=== PATIENT | female | born 1995 | race Caucasian/White ===

== ENCOUNTER 2019-09-24 08:00 | Emergency (ER) | payer SELFPAY ==
[2019-09-24 08:45] LABS: APPEARANCE,URINE CLOUDY; BILIRUBIN,URINE NEGATIVE (NEGATIVE); COLOR,URINE YELLOW; GLUCOSE, URINE NEGATIVE (NEGATIVE); KETONES,URINE NEGATIVE (NEGATIVE); PROTEIN,URINE 30 mg/dL (NEGATIVE); URINE SPECIFIC GRAVITY 1.019; UROBILINOGEN,URINE NEGATIVE mg/dL (<2.0)
[2019-09-24] MEDS ORDERED: CEPHALEXIN 500 MG CAPSULE PO ONE (09:22)
[2019-09-24] MEDS ORDERED: PHENAZOPYRIDINE HCL 200 MG TABLET PO ONE (09:22)
--- NOTE | 2019-09-24 09:25 | ER Document Report ---
HPI - HPI Patient complains to provider of: UTI Time Seen by Provider: 09/24/19 09:17 Onset: Yesterday Onset/Duration: Gradual Quality of pain: Burning Pain Level: 3 Context: Patient states she has had UTI symptoms since yesterday. Patient reports dysuria and mild hematuria. No fever. No concern about STI. No nausea or vomiting. Patient denies any flank pain. Associated Symptoms: denies: Fever, Vomiting Exacerbated by: Denies Relieved by: Denies Similar symptoms previously: Yes Recently seen / treated by doctor: No - ROS ROS below otherwise negative: Yes Systems Reviewed and Negative: Yes All other systems reviewed and negative - CONSTITUTIONAL Constitutional: DENIES: Fever, Chills - GASTROINTESTINAL Gastrointestinal: REPORTS: Abdominal Pain. DENIES: Nausea, Patient vomiting - URINARY Urinary: REPORTS: Dysuria, Urgency, Frequency - MUSCULOSKELETAL Musculoskeletal: DENIES: Back Pain, Neck Pain - DERM Skin Color: Normal Skin Problems: None Past Medical History - General Information source: Patient - Social History Smoking Status: Current Every Day Smoker Chew tobacco use (# tins/day): No Frequency of alcohol use: None Drug Abuse: None Family History: Reviewed & Not Pertinent Patient has suicidal ideation: No Patient has homicidal ideation: No Renal/ Medical History: Reports: Other - Frequent UTIs GI Medical History: Reports: Hx Ulcer Surgical Hx: Negative Vertical Provider Document - CONSTITUTIONAL Agree With Documented VS: Yes Exam Limitations: No Limitations General Appearance: WD/WN, No Apparent Distress Notes: PHYSICAL EXAMINATION: GENERAL: Well-appearing and in no acute distress. HEAD: Atraumatic, normocephalic. EYES: sclera anicteric, conjunctiva are normal. ENT: nares patent. Moist mucous membranes. NECK: Normal range of motion, supple LUNGS: CTAB and equal. No wheezes rales or rhonchi. HEART: Regular rate and rhythm without murmurs ABDOMEN: Soft, no guarding. EXTREMITIES: Normal range of motion, no pitting edema. BACK: No CVA tenderness NEUROLOGICAL: Cranial nerves grossly intact. Normal speech. PSYCH: Normal mood, normal affect. SKIN: Warm, Dry, normal turgor, no rashes or lesions noted - INFECTION CONTROL TRAVEL OUTSIDE OF THE [place] IN LAST 30 DAYS: No Course - Re-evaluation Re-evalutation: 09/24/19 09:23 Patient reports symptoms of UTI. Patient without any fever, flank pain or vomiting. No concern for pyelonephritis at this time. Good return precautions discussed. - Vital Signs Vital signs: Temp Pulse Resp BP Pulse Ox 98.1 F 93 18 110/64 98 09/24/19 08:04 09/24/19 08:04 09/24/19 08:04 09/24/19 08:04 09/24/19 08:04 - Laboratory Laboratory results interpreted by me: 09/24/19 08:12 Urine Protein 30 H Urine Blood SMALL H Leukocyte Esterase Rfl MODERATE H 09/24/19 09:23 Labs- Entire Visit 09/24/19 09/24/19 08:12 08:12 Urine Color YELLOW Urine Appearance CLOUDY Urine pH 5.0 Ur Specific [place] 1.019 Urine Protein 30 H Urine Glucose (UA) NEGATIVE Urine Ketones NEGATIVE Urine Blood SMALL H Urine Nitrite (Reflex) NEGATIVE Urine Bilirubin NEGATIVE Urine Urobilinogen NEGATIVE Leukocyte Esterase Rfl MODERATE H Urine RBC (Auto) 40 Urine WBC (Reflex) > 182 Squamous Epi Cells Auto 29 Urine Mucus (Auto) OCC Urine Ascorbic Acid NEGATIVE Urine HCG, Qual NEGATIVE Discharge - Discharge Clinical Impression: UTI (urinary tract infection) Qualifiers: Urinary tract infection type: site unspecified Hematuria presence: with hematuria Qualified Code(s): N39.0 - Urinary tract infection, site not specified Condition: Stable Disposition: HOME, SELF-CARE Instructions: Cephalexin ([facility]), Urinary Anesthetic Agent ([facility]), Urinary Tract Infection ([facility]) Additional Instructions: Return immediately for any new or worsening symptoms Followup with your primary care provider, call tomorrow to make a followup appointment Urine culture is pending, we will call if you need any different treatment Prescriptions: Cephalexin Monohydrate [Keflex 500 mg Capsule] 500 mg PO BID 5 Days #10 capsule Phenazopyridine HCl [Pyridium 200 mg Tablet] 200 mg PO TID #15 tablet Referrals: [facility] [Provider Group] - Follow up as needed
[2019-09-24 09:37] VITALS: BP 105/60
== END 2019-09-24 09:41 | disposition home or self-care (01) ==
LOC: ER 08:00
DX: N39.0 Urinary tract infection, site not specified (principal); R31.9 Hematuria, unspecified; F17.200 Nicotine dependence, unspecified, uncomplicated
CPT/HCPCS: 99283; 87086; 81025; 87088; 81001; J3490; 87186

== ENCOUNTER 2020-01-12 11:55 | Emergency (ER) | payer OTHER ==
--- NOTE | 2020-01-12 14:21 | ER Document Report ---
HPI - HPI Time Seen by Provider: 01/12/20 14:12 Context: Patient is a 24-year-old female who presents to the emergency department with multiple bug bites noted to bilateral feet and hands. Patient states that she has been taking Benadryl, but only took 1 tablet a day when symptoms started 3 d ays ago. Denies any shortness of breath or difficulty breathing. Patient states that her dogs are medicated with flea medication. Patient states that she has also tried topical Benadryl and calamine lotion with little relief. - ROS Systems Reviewed and Negative: Yes All other systems reviewed and negative - CONSTITUTIONAL Constitutional: DENIES: Fever, Chills - NEURO Neurology: DENIES: Headache, Weakness - DERM Skin Color: Normal Skin Problems: Rash - Bilateral feet; hands consistent with bug bites Past Medical History - General Information source: Patient - Social History Smoking Status: Current Every Day Smoker Family History: Reviewed & Not Pertinent GI Medical History: Reports: Hx Ulcer Vertical Provider Document - CONSTITUTIONAL Agree With Documented VS: Yes Exam Limitations: No Limitations - INFECTION CONTROL TRAVEL OUTSIDE OF THE [place] IN LAST 30 DAYS: No - HEENT HEENT: Atraumatic, Normocephalic, PERRLA - NECK Neck: Normal Inspection - RESPIRATORY Respiratory: Breath Sounds Normal, No Respiratory Distress - GI/ABDOMEN Gastrointestinal: Abdomen Soft, Abdomen Non-Tender - MUSCULOSKELETAL/EXTREMETIES Musculoskeletal/Extremeties: FROM - NEURO Level of Consciousness: Awake, Alert, Appropriate Motor/Sensory: No Motor Deficit, No Sensory Deficit - DERM Integumentary: Warm, Dry, Rash - Bilateral feet and hands, consistent with bug bites Course - Re-evaluation Re-evalutation: 01/12/20 14:22 Patient's exam is consistent with bug bites. Will start patient on cetirizine and Pepcid. Advised her to continue Benadryl. She is in agreement with this plan. Evidence of cellulitis or necrotizing fasciitis. Follow-up precautions were given. Verbal discharge instructions were given to the patient. They verbalized understanding. They are stable for discharge. - Vital Signs Vital signs: Temp Pulse Resp BP Pulse Ox 98.9 F 90 16 113/81 97 01/12/20 11:59 01/12/20 11:59 01/12/20 11:59 01/12/20 11:59 01/12/20 11:59 Discharge - Discharge Clinical Impression: Rash Condition: Stable Disposition: HOME, SELF-CARE Additional Instructions: Your seen today in the emergency department for a rash. Rash is consistent with bug bites. Please try not to scratch these, as it will make it worse. Start Pepcid. Continue Benadryl 25 to 50 mg every 4-6 hours for itchiness. Also start cetirizine. Please follow-up with your primary care provider. Prescriptions: Cetirizine HCl [All Day Allergy] 10 mg PO DAILY #14 tablet Famotidine [Pepcid 20 mg Tablet] 20 mg PO BID #20 tablet Referrals: [facility] [Provider Group] - Follow up in 3-5 days
[2020-01-12 14:22] VITALS: BP 108/69
== END 2020-01-12 14:26 | disposition home or self-care (01) ==
LOC: ER 11:55
DX: S90.862A Insect bite (nonvenomous), left foot, initial encounter (principal); S90.861A Insect bite (nonvenomous), right foot, initial encounter; S60.562A Insect bite (nonvenomous) of left hand, initial encounter; S60.561A Insect bite (nonvenomous) of right hand, initial encounter; R21 Rash and other nonspecific skin eruption; W57.XXXA Bitten or stung by nonvenomous insect and other nonvenomous arthropods, initial encounter; F17.200 Nicotine dependence, unspecified, uncomplicated
CPT/HCPCS: 99281